=== PATIENT | female | born 1995 | race Caucasian/White ===

== ENCOUNTER 2017-01-22 14:35 | Observation (INO) | payer BC ==
[~2017-01-22] VITALS: Ht 157.5 cm; Wt 107.6 kg
[~2017-01-22 14:35] MED LIST: BACTRIM,SEPT1 TABLET PO; MOTRIN800 MG PO; NORCO 5/3251 TABLET PO; SKELAXIN800 MG PO; VYVANSE20 MG PO
[2017-01-22 16:18] LABS: CHLORIDE 106 mEq/L (99-109); POTASSIUM 4.3 mEq/L (3.7-5.4); SODIUM 138 mEq/L (136-147)
[2017-01-22 16:20] LABS: GLUCOSE 97 mg/dL (70-99)
[2017-01-22 16:21] LABS: ANION GAP 6 MEQ/L (2-14)
[2017-01-22 16:22] LABS: D-DIMER ELISA 0.58 mg/L FEU (< 0.57); TOTAL BILIRUBIN 0.3 mg/dL (0.0-1.0)
[2017-01-22 16:23] LABS: ALKALINE PHOSPHATASE 85 IU/L (3-129)
[2017-01-22 16:24] LABS: GFR ESTIMATE (CALCULATED) > 59 mL/min/
[2017-01-22 16:25] LABS: UREA NITROGEN (BUN) 8 mg/dL (9-23)
[2017-01-22 16:27] LABS: LIPASE 11 U/L (1.0-51.0)
[2017-01-22 16:33] LABS: QUANTITATIVE HCG < 4.0 MIU/ML
[2017-01-22] MEDS ORDERED: VYVANSE40 MG PO (19:40)
[2017-01-22 21:48] LABS: BASOPHIL COUNT 0.1 K/uL (0-0.1); EOSINOPHIL (%) 3.6 % (0-5); EOSINOPHIL COUNT 0.6 K/uL (0-0.3); HEMATOCRIT 40.5 % (36.0-46.0); IMMATURE GRANULOCYTE (%) 0.4 % (0.0-0.7); IMMATURE GRANULOCYTE COUNT 0.1 K/uL; INSTRUMENT ABS NEUTROPHIL CT 11.5 K/uL; LYMPHOCYTE COUNT 3.2 K/uL (1.0-2.8); MCH 25.9 PG (29.0-34.0); MCHC 32.6 G/DL (30.0-36.0); MCV 79.4 FL (83-99); MONOCYTE (%) 5.3 % (3-12); MONOCYTE COUNT 0.9 K/uL (0-0.8); NEUTROPHIL (%) 70.8 % (45-76); NEUTROPHIL COUNT 11.5 K/uL (1.8-6.4); PLATELET COUNT 424 K/uL (156-360); RBC DIS.WIDTH-CV 13.4 % (11.8-14.6); RBC DIS.WIDTH-SD 38.7 % (39-53); WHITE BLOOD COUNT 16.3 K/uL (4.1-10.2)
[2017-01-22 22:03] LABS: PROTHROMBIN TIME 10.5 (9.2-11.2); PTT 30.1 (25-32)
[2017-01-23 00:28] LABS: ADD MIUA? YES; BILIRUBIN NEGATIVE; BLOOD NEGATIVE; COLOR YELLOW ((YELLOW)); GLUCOSE (STRIP) NEGATIVE; KETONES NEGATIVE; LEUKOCYTES MODERATE; NITRITE NEGATIVE; PROTEIN (STRIP) NEGATIVE; UROBILINOGEN 0.2 MG/DL (0.2-1.0)
[2017-01-23 00:31] LABS: BACTERIA NONE SEEN /HPF; EPITHELIAL CELLS 1+ /HPF; MUCUS TRACE /LPF; RED BLOOD CELLS 0-5 /HPF (0-5); WHITE BLOOD CELLS 0-5 /HPF (0-5)
[2017-01-23 00:40] LABS: SPECIFIC GRAVITY 1.076 (1.000-1.030)
[2017-01-23 02:31] VITALS: BP 122/64
[2017-01-23 04:34] VITALS: BP 103/53
[2017-01-23 07:30] VITALS: BP 110/66
[2017-01-23 11:12] VITALS: BP 119/60
[2017-01-23] MEDS ORDERED: XARELTO1 EACH PO (12:26)
== END 2017-01-23 13:55 | disposition home or self-care (01) ==
LOC: EME 14:35 → 5WEST 21:14 → EDOF 21:14 → 5WEST 01-23 02:03
PROVIDERS: Hospitalist; Physician Assistant
DX: I26.99 Other pulmonary embolism without acute cor pulmonale (principal); E66.9 Obesity, unspecified; F17.210 Nicotine dependence, cigarettes, uncomplicated; Z86.711 Personal history of pulmonary embolism; Z86.718 Personal history of other venous thrombosis and embolism
CPT/HCPCS: 71020; 71275; 80053; 81003; 81240 90; 83090 90; 83690; 84702; 85025; 85240 90; 85300 90; 85303 90; 85305 90; 85306 90; 85379; 85610; 85613 90; 85730; 85730 90; 86146 90; 86147 90; 93970; 99281; 99285; G0378; J1650; J1885

== ENCOUNTER 2017-05-05 15:15 | Emergency (ER) | payer BC ==
[~2017-05-05] VITALS: Ht 157.5 cm; Wt 106.6 kg
[~2017-05-05 15:15] MED LIST changes: +VYVANSE40 MG PO; +XARELTO1 EACH PO
[2017-05-05 15:55] LABS: HEMATOCRIT 40.3 % (36.0-46.0); MCH 25.6 PG (29.0-34.0); MCHC 32.5 G/DL (30.0-36.0); MCV 78.9 FL (83-99); MEAN PLAT.VOLUME 8.8 uM^3 (9.5-12.4); PLATELET COUNT 453 K/uL (156-360); RBC DIS.WIDTH-CV 13.4 % (11.8-14.6); RBC DIS.WIDTH-SD 38.5 % (39-53); RED BLOOD COUNT 5.11 M/uL (3.80-5.20)
[2017-05-05 16:06] LABS: CHLORIDE 107 mEq/L (99-109); POTASSIUM 4.4 mEq/L (3.7-5.4); SODIUM 142 mEq/L (136-147)
[2017-05-05 16:08] LABS: GLUCOSE 126 mg/dL (70-99)
[2017-05-05 16:09] LABS: ANION GAP 10 MEQ/L (2-14); D-DIMER ELISA 0.38 mg/L FEU (< 0.57)
[2017-05-05 16:12] LABS: GFR ESTIMATE (CALCULATED) > 59 mL/min/
[2017-05-05 16:13] LABS: UREA NITROGEN (BUN) 8 mg/dL (9-23)
[2017-05-05 16:16] LABS: TROP-I INTERPRETATION NEGATIVE; TROPONIN-I < 0.01 ng/mL (0.0-0.30)
[2017-05-05 20:08] VITALS: BP 104/69
== END 2017-05-05 20:33 | disposition home or self-care (01) ==
LOC: EME 15:15
PROVIDERS: Emergency Medicine
DX: R07.89 Other chest pain (principal); R00.0 Tachycardia, unspecified; Z86.711 Personal history of pulmonary embolism; Z86.718 Personal history of other venous thrombosis and embolism; Z91.14 Patient's other noncompliance with medication regimen; F17.200 Nicotine dependence, unspecified, uncomplicated
CPT/HCPCS: 71020; 71275; 80048; 84484; 85027; 85379; 93005; 99281; 99285; J7030